=== PATIENT | female | born 1995 | race Caucasian/White ===

== ENCOUNTER 2017-01-03 15:06 | Emergency (ER) | payer OTHER ==
[~2017-01-03] VITALS: Ht 170.2 cm; Wt 66.0 kg
[~2017-01-03 15:06] MED LIST: ALEVE220 M1 PO; AMOXICILLIN/CL875 MG PO; AMOXICILLIN500 MG PO; AUGMENTIN875TAB OR; AUGMENTIN875TAB PO; AUGMENTINES600 PO; FERR SULFATE325 MG PO; KEFLEX250 MG PO; KEFLEX500 MG PO; LORTAB 7.57.5 MG PO; MULTI VIT PO; ORTHO TRICYCLINE; PERI-COLACE1 TAB; PHENERGAN12.5 MG/TA PO; PRENATAL FORMUL; PROAIR HFA IN; TUMS500 MG PO; [UNRECOGNIZED DRUG - OTHER]
[2017-01-03 15:47] LABS: HEMATOCRIT 38.2 % (37.0-47.0); IMMATURE GRANULOCYTES 0.2 % (0.0-1.0); MEAN CELL VOLUME 94.1 fL CALC (80.0-100.0); NEUT# 5.63 thou/uL (2.00-7.15); RED BLOOD COUNT 4.06 mill/uL (4.20-5.60); RED CELL DISTRI WIDTH 12.7 % (11.5-15.5)
[2017-01-03 16:01] LABS: URINE BILIRUBIN - DIPSTICK NEGATIVE (NEGATIVE); URINE BLOOD DIPSTICK LARGE (NEGATIVE); URINE CLARITY CLOUDY; URINE COLOR YELLOW; URINE GLUCOSE - DIPSTICK NEGATIVE (NEGATIVE); URINE KETONE NEGATIVE (NEGATIVE); URINE PROTEIN - DIPSTICK NEGATIVE (NEG-TRACE); URINE UROBILINOGEN - DIPSTICK 0.2 E.U./dL (0.2)
[2017-01-03 16:04] LABS: ALBUMIN 4.6 g/dL (3.2-5.0); ALKALINE PHOSPHATASE 51 u/l (38-126); ANION GAP 16 (6-22 (CALC)); BILIRUBIN, TOTAL 0.6 mg/dL (0.0-1.4); BUN 6 mg/dL (7-17); BUN/CREATININE RATIO 9 (12-20 (CALC)); CALCIUM 9.8 mg/dL (8.4-10.2); CARBON DIOXIDE 23 mmol/l (22-30); CHLORIDE 109 mmol/l (95-108); CREATININE 0.7 mg/dL (0.5-1.0); GFR > 60 ML/MIN (>=60 (CALC)); GFR FOR AFR.AMER. > 60 ML/MIN (>=60 (CALC)); GLUCOSE 85 mg/dL (65-105); POTASSIUM 4.3 mmol/l (3.5-5.1); SGOT/AST 18 u/l (14-36); SGPT/ALT 24 u/l (9-52); SODIUM 144 mmol/l (137-146); TOTAL PROTEIN 7.4 g/dL (6.3-8.2)
[2017-01-03 16:07] LABS: URINE LEUK ESTERASE MODERATE (NEGATIVE); URINE NITRITE - DIPSTICK POSITIVE (Negative)
[2017-01-03 16:08] LABS: URINE BACTERIA MANY hpf; URINE SQUAMOUS EPITHELIAL CELL FEW EPI/hpf (0-FEW); URINE WBC 20-50 WBC/hpf (0-5)
[2017-01-03 16:21] LABS: BETA-HCG, QUANT(RESULT NUMBER) 604 mIU/mL
[2017-01-03] MEDS ORDERED: PRENATAL MULTI1 CAP PO (18:15)
[2017-01-03 18:20] VITALS: BP 111/70
== END 2017-01-03 18:10 | disposition home or self-care (01) | DRG 779 ==
LOC: ED 15:06 → ED-I 17:45 → ED 18:10
PROVIDERS: Emergency Medicine
DX: O03.9 Complete or unspecified spontaneous abortion without complication (principal)